=== PATIENT | male | born 1935 | race Caucasian/White ===

== ENCOUNTER 2017-01-31 16:12 | Inpatient (IN) | payer OTHER, MEDICARE ==
[~2017-01-31] VITALS: Ht 177.8 cm; Wt 79.1 kg
[2017-01-31] MEDS ORDERED: BENA5TAB PO (16:52)
[2017-01-31] MEDS ORDERED: ALLO100T PO (16:52)
[2017-01-31] MEDS ORDERED: LOSA25TA PO (16:52)
--- NOTE | 2017-01-31 17:12 | PD ---
HPI Chief Complaint: Hip Injury Time Seen by Provider: 16:24 Travel History International Travel<30 days: No Contact w/Intl Traveler<30days: No Traveled to known affect area: No History of Present Illness HPI 81-year-old male that presents to the ED via ambulance for evaluation of left hip injury. Per patient he was sitting at work trying to get a paper when he lost his balance and landed on his left hip. He denies any other injury. No abdominal or back pain. No neck pain. No head injury or loss of consciousness. Per patient the pain is severe and he cannot move his leg because of the pain. He was not able to get up himself. Upper injuries to the leg. No urinary or bowel movement issues. No fevers chills or sweats. Allergies to penicillin. Per patient the pain is severe 8 out of 10 and gets worse with movement. He was given 8 of morphine by ambulance. He has no other medical issues other than hypertension. No prior injuries or surgeries to the left hip. He denies any numbness, tingling, weakness. Takes no blood thinners. Per patient he last ate at 12:00. He has no orthopedic surgeon that he knows of. [facility] Past Medical History Hypertension: Yes Social History Alcohol Use: No Tobacco Use: No Substance Use: No Allergies-Medications (Allergen,Severity, Reaction): Coded Allergies: Penicillins (Verified Allergy, Unknown, 01/31/17) Reported Meds & Prescriptions Reported Meds & Active Scripts Active Reported Losartan (Losartan Potassium) 25 Mg Tab Unknown Dose PO DAILY Allopurinol 100 Mg Tab Unknown Dose PO DAILY Benazepril (Benazepril HCl) 5 Mg Tab Unknown Dose PO BID Review of Systems Except as stated in HPI: all other systems reviewed are Neg Physical Exam Narrative GENERAL: SKIN: Warm and dry. HEAD: Atraumatic. Normocephalic. EYES: Pupils equal and round. No scleral icterus. No injection or drainage. ENT: No nasal bleeding or discharge. Mucous membranes pink and moist. Tongue is midline. No uvula deviation. NECK: Trachea midline. No JVD. CARDIOVASCULAR: Regular rate and rhythm. No murmurs, S3, S4. RESPIRATORY: No accessory muscle use. Clear to auscultation. Breath sounds equal bilaterally. GASTROINTESTINAL: Abdomen soft, non-tender, nondistended. Hepatic and splenic margins not palpable. MUSCULOSKELETAL: Extremities without clubbing, cyanosis, or edema. No obvious deformities. Full range of motion of all extremities with exception of the left hip for which she has severe pain even with touch as well as with flexion and extension. No obvious shortening of the leg noted. 2+ pulses bilaterally. No cervical, thoracic, lumbar spine tenderness to palpation. No right hip pain. Full range of motion at right lower extremity with no pain. NEUROLOGICAL: Awake and alert. No obvious cranial nerve deficits. Motor grossly within normal limits. Five out of 5 muscle strength in the arms and legs. Normal speech. PSYCHIATRIC: Appropriate mood and affect; insight and judgment normal. Data Data Orders Orders Hip, Uni(Ap&Lat) W Ap Pelvis (01/31/17 16:22) Ice/Cold Pack (01/31/17 16:22) Chest, Single Ap (01/31/17 16:22) Electrocardiogram (01/31/17 16:22) Complete Blood Count With Diff (01/31/17 16:22) Basic Metabolic Panel (Bmp) (01/31/17 16:22) Prothrombin Time / Inr (Pt) (01/31/17 16:22) Act Partial Throm Time (Ptt) (01/31/17 16:22) Urinalysis - C+S If Indicated (01/31/17 16:22) Magnesium (Mg) (01/31/17 16:22) Iv Access Insert/Monitor (01/31/17 16:22) Ecg Monitoring (01/31/17 16:22) Oximetry (01/31/17 16:22) Femur (Ap & Lat/2vws) (01/31/17 ) Sodium Chlor 0.9% 1000 Ml Inj (Ns 1000 M (01/31/17 17:42) Admit To Inpatient (01/31/17 ) Vital Signs (Adult) TY.Q4H (01/31/17 18:01) Activity Bed Rest (01/31/17 18:01) Sodium Chlor 0.45% 1000 Ml Inj (1/2 Ns 1 (01/31/17 18:01) Inpatient Certification (01/31/17 ) Admit Order (Ed Use Only) (01/31/17 18:07) Consult Orthopedic (01/31/17 ) Labs Laboratory Tests Test 01/31/17 16:25 01/31/17 18:00 White Blood Count 8.0 TH/MM3 Red Blood Count 3.71 MIL/MM3 Hemoglobin 12.6 GM/DL Hematocrit 37.1 % Mean Corpuscular Volume 100.0 FL Mean Corpuscular Hemoglobin 33.9 PG Mean Corpuscular Hemoglobin Concent 33.9 % Red Cell Distribution Width 14.7 % Platelet Count 179 TH/MM3 Mean Platelet Volume 6.7 FL Neutrophils (%) (Auto) 71.3 % Lymphocytes (%) (Auto) 20.1 % Monocytes (%) (Auto) 6.4 % Eosinophils (%) (Auto) 1.4 % Basophils (%) (Auto) 0.8 % Neutrophils # (Auto) 5.7 TH/MM3 Lymphocytes # (Auto) 1.6 TH/MM3 Monocytes # (Auto) 0.5 TH/MM3 Eosinophils # (Auto) 0.1 TH/MM3 Basophils # (Auto) 0.1 TH/MM3 CBC Comment DIFF FINAL Differential Comment Prothrombin Time 10.8 SEC Prothromb Time International Ratio 1.0 RATIO Activated Partial Thromboplast Time 22.5 SEC Blood Urea Nitrogen 71 MG/DL Creatinine 3.76 MG/DL Random Glucose 114 MG/DL Calcium Level 8.8 MG/DL Magnesium Level 2.5 MG/DL Sodium Level 140 MEQ/L Potassium Level 4.0 MEQ/L Chloride Level 110 MEQ/L Carbon Dioxide Level 20.7 MEQ/L Anion Gap 9 MEQ/L Estimat Glomerular Filtration Rate 15 ML/MIN Urine Color LIGHT-YELLOW Urine Turbidity CLEAR Urine pH 6.5 Urine Specific [place] 1.009 Urine Protein 100 mg/dL Urine Glucose (UA) NEG mg/dL Urine Ketones NEG mg/dL Urine Occult Blood SMALL Urine Nitrite NEG Urine Bilirubin NEG Urine Urobilinogen LESS THAN 2.0 MG/DL Urine Leukocyte Esterase NEG Urine RBC 3 /hpf Urine Squamous Epithelial Cells <1 /hpf Urine Bacteria RARE /hpf Microscopic Urinalysis Comment CULT NOT INDICATED MDM Medical Decision Making Medical Screen Exam Complete: Yes Emergency Medical Condition: Yes Medical Record Reviewed: Yes Interpretation(s) CBC & BMP Diagram 01/31/17 16:25 Calcium Level 8.8, Magnesium Level 2.5 Last Impressions Hip and Pelvis X-Ray 01/31/17 0222 Signed Impressions: Service Date/Time: January 16:50 - CONCLUSION: Acute left proximal femur fracture involving the intertrochanteric region with prominent medial angulation of the distal fragment. Anthony R Larry, MD Chest X-Ray 01/31/17 1622 Signed Impressions: Service Date/Time: January 16:53 - CONCLUSION: 1. Chronic appearing interstitial changes. No acute abnormality. Oscar Mccoy MD Femur X-Ray 01/31/17 0000 Signed Impressions: Service Date/Time: January 16:50 - CONCLUSION: Angulated intertrochanteric fracture of the left femur. Anthony Larry MD Differential Diagnosis Fracture versus sprain versus strain versus fall Narrative Course 80-year-old male that presents to the ED for evaluation of fall. Patient was properly examined and was found to have signs and symptoms concerning for fracture of the hip. X-rays were ordered. Labs were ordered. Labs and imaging showed fracture of the left hip as well as what appears to be acute on chronic kidney injury. Patient was told results and agrees with plan. Call was placed to Dr. Askew who agrees to admission to medicine with surgery tomorrow by possibly Dr. Vaca. Nothing by mouth after midnight. Case was discussed with Dr. Paredes who agrees to admission. Diagnosis Primary Impression: Intertrochanteric fracture of left hip Qualified Codes: S72.142A - Displaced intertrochanteric fracture of left femur , initial encounter for closed fracture Additional Impression: Acute kidney injury Admitting Information Admitting Physician Requests: Admit Dalton Bueno Jan 31, 2017 17:12
[2017-01-31 17:18] LABS: APTT (PATIENT) 22.5 SEC (24.3-30.1); PROTHROMBIN TIME - PATIENT 10.8 SEC (9.8-11.6)
[2017-01-31 17:19] LABS: AUTOMATED NEUTROPHIL # 5.7 TH/MM3 (1.8-7.7); BASOPHIL # 0.1 TH/MM3 (0-0.2); BASOPHIL % 0.8 % (0.0-2.0); EOSINOPHIL # 0.1 TH/MM3 (0-0.4); EOSINOPHIL % 1.4 % (0.0-4.0); HEMATOCRIT 37.1 % (39.0-51.0); HEMO FLAGS DIFF FINAL; LYMPH % 20.1 % (9.0-44.0); LYMPHOCYTE # 1.6 TH/MM3 (1.0-4.8); MEAN CORPUSCULAR HEMOGLOBIN 33.9 PG (27.0-34.0); MEAN CORPUSCULAR HGB CONC 33.9 % (32.0-36.0); MONO % 6.4 % (0.0-8.0); NEUT % 71.3 % (16.0-70.0); PLATELET COUNT 179 TH/MM3 (150-450); RED BLOOD COUNT 3.71 MIL/MM3 (4.50-5.90); RED CELL DISTRIBUTION WIDTH 14.7 % (11.6-17.2)
--- NOTE | 2017-01-31 17:23 | RADRPT ---
EXAM DATE/TIME: 01/31/2017 16:53 [facility] COMPARISON: HIP LEFT (AP&LAT 2/3VWS) W AP PELVIS, January 31, 2017, 16:50. INDICATIONS : Chest pain after fall. MEDICAL HISTORY : Hypertension. SURGICAL HISTORY : None. ENCOUNTER: Initial ACUITY: 1 day PAIN SCORE: 0/10 LOCATION: Bilateral chest FINDINGS: The heart is mildly enlarged. There diffuse chronic interstitial changes. No focal or segmental pneum onia seen. No suspicious masses identified. The visualized bony structures are grossly intact. CONCLUSION: 1. Chronic appearing interstitial changes. No acute abnormality. Oscar Mccoy MD on January 31, 2017 at 17:20 Board Certified Radiologist. This report was verified electronically.
--- NOTE | 2017-01-31 17:24 | RADRPT ---
EXAM DATE/TIME: 01/31/2017 16:50 [facility] COMPARISON: No previous studies available for comparison. INDICATIONS : Left hip pain after fall. MEDICAL HISTORY : Gout. SURGICAL HISTORY : None. ENCOUNTER: Initial ACUITY: 1 day PAIN SCORE: 10/10 LOCATION: Left hip. FINDINGS: 4 views left hip and pelvis. Intertrochanteric fracture of the proximal left femur 90 medial angulat ion of the distal fragment. Hip joint alignment within normal limits. Small osteophytes of the left h ip. Subchondral cyst of the superior acetabulum measures 1.6 cm. CONCLUSION: Acute left proximal femur fracture involving the intertrochanteric region with prominent medial angul ation of the distal fragment. Anthony Larry MD on January 31, 2017 at 17:21 Board Certified Radiologist. This report was verified electronically.
--- NOTE | 2017-01-31 17:25 | RADRPT ---
EXAM DATE/TIME: 01/31/2017 16:50 [facility] COMPARISON: No previous studies available for comparison. INDICATIONS : Left femur pain after fall. MEDICAL HISTORY : Gout. SURGICAL HISTORY : None. ENCOUNTER: Initial ACUITY: 1 day PAIN SCORE: 10/10 LOCATION: Left proximal femur. FINDINGS: 4 views left femur. Intertrochanteric fracture of the proximal left femur. Prominent medial angulatio n distal fragment. Chondrocalcinosis of the lateral meniscus. CONCLUSION: Angulated intertrochanteric fracture of the left femur. Anthony Larry MD on January 31, 2017 at 17:23 Board Certified Radiologist. This report was verified electronically.
[2017-01-31 17:27] LABS: BICARBONATE 20.7 MEQ/L (21.0-32.0); MAGNESIUM 2.5 MG/DL (1.5-2.5)
[2017-01-31] MEDS ORDERED: SODIUM CHLOR 0.9% 1000 ML INJ 1,000 ML IV SCH (17:42)
[2017-01-31] MEDS ORDERED: SODIUM CHLOR 0.45% 1000 ML INJ 1,000 ML IV SCH (18:01)
[2017-01-31 18:31] LABS: BACTERIA, URINE RARE /hpf; BLOOD, URINE SMALL (NEG); COMMENT (UR) CULT NOT INDICATED; CULTURE IF INDICATED CULT NOT INDICATED; GLUCOSE,URINE NEG (NEG); KETONE, URINE NEG (NEG); NITRITE,URINE NEG (NEG); PH, URINE 6.5 (5.0-8.5); SQUAMOUS EPITHELIAL CELL URINE <1 /hpf (0-5); URINE COLOR LIGHT-YELLOW (YELLW/STRAW)
[2017-01-31] MEDS ORDERED: MORPHINE SULFATE 4 MG/ML INJ IV PUSH PRN (19:00)
--- NOTE | 2017-01-31 19:05 | HHI.HP ---
[facility] No Primary Care Physician Admission Diagnosis acute left intratrochanteric fracture, acute kidney injury Diagnoses: Chief Complaint: fall Travel History International Travel<30 Days: No Contact w/Intl Traveler <30 Da: No Traveled to Known Affected Are: No History of Present Illness 81-year-old white male being admitted for left intertrochanteric hip fracture. Patient was in his usual state of health until this morning at work when he was trying to reach for object on the floor from a sitting position when his wheeled chair gave away and he fell subsequently on his left side experiencing instantaneous pain. He denies having any lightheadedness chest pain or shortness of breath preceding during or after the incident. At that point he called 911 and came to the emergency room. Says he has a travel cota, takes blood pressure medications as well as medication for gout. Review of Systems Except as stated in HPI: all other systems reviewed are Neg Past Family Social History Past Medical History Chronic kidney disease, hypertension, Gout Past Surgical History None Allergies: Coded Allergies: Penicillins (Verified Allergy, Unknown, 01/31/17) Family History None Social History Lives with his , denies cigarette use, denies really illicit drug use, denies alcohol Physical Exam Physical Exam VS: No vital signs have been charted at this time GENERAL: No acute distress SKIN: Warm and dry. EYES: Pupils equal and round. No scleral icterus. No injection or drainage. ENT: No nasal bleeding or discharge. Mucous membranes pink and moist. CARDIOVASCULAR: Regular rate and rhythm. no murmurs RESPIRATORY: No accessory muscle use. Clear to auscultation. Breath sounds equal bilaterally. GASTROINTESTINAL: Abdomen soft, non-tender, nondistended. MUSCULOSKELETAL: Extremities without clubbing, cyanosis, or edema. Left leg slightly laterally rotated, patient not willing to move it due to intense pain, no significant edema noted over left thigh or lower leg, intact ankle dorsiflexion and plantar flexion. Has carpal tunnel brace on right hand. NEUROLOGICAL: Awake and alert. No obvious cranial nerve deficits. No facial droop nor slurred speech noted. Intact sensation over left foot, PSYCHIATRIC: Appropriate mood and affect; insight and judgment normal. Laboratory Laboratory Tests Test 01/31/17 16:25 01/31/17 18:00 White Blood Count 8.0 Red Blood Count 3.71 Hemoglobin 12.6 Hematocrit 37.1 Mean Corpuscular Volume 100.0 Mean Corpuscular Hemoglobin 33.9 Mean Corpuscular Hemoglobin Concent 33.9 Red Cell Distribution Width 14.7 Platelet Count 179 Mean Platelet Volume 6.7 Neutrophils (%) (Auto) 71.3 Lymphocytes (%) (Auto) 20.1 Monocytes (%) (Auto) 6.4 Eosinophils (%) (Auto) 1.4 Basophils (%) (Auto) 0.8 Neutrophils # (Auto) 5.7 Lymphocytes # (Auto) 1.6 Monocytes # (Auto) 0.5 Eosinophils # (Auto) 0.1 Basophils # (Auto) 0.1 CBC Comment DIFF FINAL Differential Comment Prothrombin Time 10.8 Prothromb Time International Ratio 1.0 Activated Partial Thromboplast Time 22.5 Blood Urea Nitrogen 71 Creatinine 3.76 Random Glucose 114 Calcium Level 8.8 Magnesium Level 2.5 Sodium Level 140 Potassium Level 4.0 Chloride Level 110 Carbon Dioxide Level 20.7 Anion Gap 9 Estimat Glomerular Filtration Rate 15 Urine Color LIGHT-YELLOW Urine Turbidity CLEAR Urine pH 6.5 Urine Specific [place] 1.009 Urine Protein 100 Urine Glucose (UA) NEG Urine Ketones NEG Urine Occult Blood SMALL Urine Nitrite NEG Urine Bilirubin NEG Urine Urobilinogen LESS THAN 2.0 Urine Leukocyte Esterase NEG Urine RBC 3 Urine Squamous Epithelial Cells <1 Urine Bacteria RARE Microscopic Urinalysis Comment CULT NOT INDICATED Result Diagram: 01/31/17 1625 01/31/17 1625 Imaging Last Impressions Hip and Pelvis X-Ray 01/31/171621 Signed Impressions: Service Date/Time: January 16:50 - CONCLUSION: Acute left proximal femur fracture involving the intertrochanteric region with prominent medial angulation of the distal fragment. Anthony Larry MD Chest X-Ray 01/31/171621 Signed Impressions: Service Date/Time: January 16:53 - CONCLUSION: 1. Chronic appearing interstitial changes. No acute abnormality. Oscar Mccoy MD Femur X-Ray 01/31/17 0000 Signed Impressions: Service Date/Time: January 16:50 - CONCLUSION: Angulated intertrochanteric fracture of the left femur. Anthony Larry MD Caprini VTE Risk Assessment Caprini VTE Risk Assessment: Mod/High Risk (score >= 2) Caprini Risk Assessment Model Point Value = 1 Point Value = 2 Point Value = 3 Point Value = 5 Age 41-60 Minor surgery BMI > 25 kg/m2 Swollen legs Varicose veins or History of unexplained or recurrent spontaneous Oral contraceptives or hormone replacement Sepsis (< 1 month) Serious lung disease, including pneumonia (< 1 month) Abnormal pulmonary function Acute myocardial infarction Congestive heart failure (< 1 month) History of inflammatory bowel disease Medical patient at bed rest Age 61-74 Arthroscopic surgery Major open surgery (> 45 min) Laparoscopic surgery (> 45 min) Malignancy Confined to bed (> 72 hours) Immobilizing plaster cast Central venous access Age >= 75 History of VTE Family history of VTE Factor V Leiden Prothrombin [id number] Lupus anticoagulant Anticardiolipin antibodies Elevated serum homocysteine Heparin-induced thrombocytopenia Other congenital or acquired thrombophilia Stroke (< 1 month) Elective arthroplasty Hip, pelvis, or leg fracture Acute spinal cord injury (< 1 month) Prophylaxis Regimen Total Risk Factor Score Risk Level Prophylaxis Regimen 0-1 Low Early ambulation 2 Moderate Order ONE of the following: *Sequential Compression Device (SCD) *Heparin 5000 units SQ BID 3-4 Higher Order ONE of the following medications: *Heparin 5000 units SQ TID *Enoxaparin/Lovenox 40 mg SQ daily (WT < 150 kg, CrCl > 30 mL/min) *Enoxaparin/Lovenox 30 mg SQ daily (WT < 150 kg, CrCl > 10-29 mL/min) *Enoxaparin/Lovenox 30 mg SQ BID (WT < 150 kg, CrCl > 30 mL/min) AND/OR *Sequential Compression Device (SCD) 5 or more Highest Order ONE of the following medications: *Heparin 5000 units SQ TID (Preferred with Epidurals) *Enoxaparin/Lovenox 40 mg SQ daily (WT < 150 kg, CrCl > 30 mL/min) *Enoxaparin/Lovenox 30 mg SQ daily (WT < 150 kg, CrCl > 10-29 mL/min) *Enoxaparin/Lovenox 30 mg SQ BID (WT < 150 kg, CrCl > 30 mL/min) AND *Sequential Compression Device (SCD) Assessment and Plan Assessment and Plan 81-year-old white male being admitted for a left intertrochanteric fracture secondary to mechanical fall, hemodynamically stable upon admission. - Left intertrochanteric fracture secondary to mechanical fall Surgery scheduled for tomorrow, ortho consulted. Pain medication as needed. Nothing by mouth except medications after midnight Hypertension - We'll resume home losartan and benazepril tomorrow in a.m. after renal function is reassessed Acute on CKD - Repeat BMP in a.m. after IV hydration tonight gout - await RF reassessment in am before restarting allopurinol right hand carpal tunnel - may continue splint Lovenox to be started postop. Physician Certification 2 Midnight Certification Type: Admission for Inpatient Services Order for Inpatient Services The services are ordered in accordance with Medicare regulations or non- Medicare payer requirements, as applicable. In the case of services not specified as inpatient-only, they are appropriately provided as inpatient services in accordance with the 2-midnight benchmark. Estimated LOS (days): 2 2 days is the estimated time the patient will need to remain in the hospital, assuming treatment plan goals are met and no additional complications. Post-Hospital Plan: Home Paras Corral MD Jan 31, 2017 19:05
[2017-01-31 20:25] VITALS: BP 158/87; PULSE 83; RESP 18; TEMP 96.2; O2SAT 97
[2017-01-31] MEDS: SODIUM CHLOR 0.9% 1000 ML INJ 1,000 ML IV SCH (20:26)
[2017-01-31] MEDS: ACETAMINOPHEN/HYDROcodone 325 MG/5 MG TAB PO PRN (20:46)
[2017-02-01] VITALS (7 sets, daily range): BP systolic 135–164; BP diastolic 72–77; PULSE 86–94; RESP 17–18; TEMP 95.5–97.2; O2SAT 93–97
[2017-02-01] MEDS ORDERED: CHLORHEXIDINE GLUCONATE 2 % 1 PACK (2 CLOTHS) TOPICAL PRN (00:30)
[2017-02-01] MEDS ORDERED: LACTATED RINGER'S 1000 ML IV PRN (00:30)
[2017-02-01] MEDS ORDERED: POVIDONE IODINE 5% (ANTISEPSIS KIT) 4 APPLICATIONS EACH NARE PRN (00:30)
[2017-02-01] MEDS ORDERED: INSULIN HUMAN REGULAR 1,000 UNITS/10 ML VIAL SQ PRN (00:30)
[2017-02-01] MEDS: ACETAMINOPHEN/HYDROcodone 325 MG/5 MG TAB PO PRN (04:08)
[2017-02-01] MEDS ORDERED: XARE10TA PO ×2 (06:23→13:47)
[2017-02-01] MEDS ORDERED: HYDR-3580 PO (06:23)
[2017-02-01] MEDS ORDERED: WALKER/ADULT/FO1 MIS (06:23)
[2017-02-01] MEDS ORDERED: ACETAMINOPHEN 1000 MG/100 ML 100 ML IV ONE (06:39)
--- NOTE | 2017-02-01 06:55 | PD.ORT.PN ---
Subjective Subjective Remarks s/p fall at work left hip pain. no other complaints Objective Vitals Vital Signs Date Time Temp Pulse Resp B/P (MAP) Pulse Ox O2 Delivery O2 Flow Rate FiO2 02/01/17 04:38 96.5 90 18 135/72 (93) 96 02/01/17 00:55 97.2 94 18 147/74 (98) 97 01/31/17 20:25 96.2 83 18 158/87 (110) 97 I/O 01/31/17 01/31/17 01/31/17 02/01/17 02/01/17 02/01/17 07:00 15:00 23:00 07:00 15:00 23:00 Intake Total 240 ml Output Total 800 ml Balance -560 ml Intake Oral 240 ml Output Urine Total 800 ml # Voids 2 # Bowel Movements 0 Result Diagram: 01/31/17 1625 01/31/171624 Other Results Laboratory Tests Test 01/31/17 16:25 Prothromb Time International Ratio 1.0 RATIO Prothrombin Time 10.8 SEC (9.8-11.6) Imaging Last 24 hours Impressions Hip and Pelvis X-Ray 01/31/171621 Signed Impressions: Service Date/Time: January 16:50 - CONCLUSION: Acute left proximal femur fracture involving the intertrochanteric region with prominent medial angulation of the distal fragment. Anthony Larry MD Chest X-Ray 01/31/171621 Signed Impressions: Service Date/Time: January 16:53 - CONCLUSION: 1. Chronic appearing interstitial changes. No acute abnormality. Oscar Mccoy MD Objective Remarks LLE: pain with motion. no pain in knee or ankle. nvi Assessment & Plan Assessment and Plan 1) Left Intertroch hip fx -npo -consents -surg this AM Thiago Platt Feb 01, 2017 06:55
[2017-02-01] MEDS ORDERED: BUPIVACAINE/EPINEPHRINE 0.25% 50 ML VIAL ONE (07:43)
[2017-02-01] MEDS ORDERED: VANCOMYCIN HCL 1000 MG VIAL ONE (07:43)
[2017-02-01] MEDS ORDERED: SODIUM CHLOR 0.9% 250 ML INJ 250 ML ONE (07:43)
[2017-02-01] MEDS ORDERED: GENTAMICIN SULFATE 80 MG/2 ML VIAL ONE (07:43)
--- NOTE | 2017-02-01 10:11 | PD.OP ---
cc: Zackery Vaca MD Operative Report Date of Surgery: Feb 01, 2017 Preoperative Diagnosis: Displaced left proximal femur fracture Postoperative Diagnosis: Procedure: Left hip fracture reduction and intramedullary nail fixation Anesthesia: Gen. Surgeon: Zackery Vaca Drawbench Operator(s): FRANKLYN Morrison PA-C The surgical procedure was assisted by my physician specimen preparation assistant. My P.A. presence was necessary throughout this case for the manipulation and positioning of the surgical extremity. My P.A. was assisting me throughout the duration of this procedure. The skill set of a physician specimen preparation assistant was medically necessary to complete this procedure. During the surgical case the asbestos abatement technician was working at the back table and the physician specimen preparation assistant was directly assisting me. Operation and Findings: Implants used: [12]mm x [400]mm Synthes TFNA troch nail Plan of activity: Weight-bear as tolerated Patient was seen and evaluated preoperatively. The patient has significant hip pain from proximal femur fracture. The risk and benefits of surgery were discussed in depth with the patient to include bleeding, infection, nonunion, malunion, need for hip replacement, painful hardware, as well as medical competitions including blood clots, stroke, heart attack, and . Informed consent was obtained. Operative site was marked. Patient was brought to the operating room and placed on fracture table. IV sedation was administered by anesthesiologist. Timeout procedure was performed. Hip and leg were prepped with alcohol followed by DuraPrep and draped in the usual sterile fashion. IV antibiotics were given prior to incision. Procedure began with reduction of fracture. Traction was applied. The leg was manipulated to achieve reduction. Excellent reduction was achieved. Fluoroscopy was used to confirm reduction. A three inch incision was made proximal to the trochanter. Subcutaneous tissue was dissected bluntly. Guidepin was placed at the tip of the trochanter and advanced into the femoral canal. Fluoroscopy confirmed appropriate guidepin placement. A opening reamer was placed over the guidepin. A long ball tipped guide pin was now placed down the femoral canal into the center of the distal femur. The nail length was now measured. Fluoroscopy confirmed appropriate guidepin placement. Flexible reamers were now passed over the guidepin to ream the intramedullary canal. The Synthes TFNA nail was attached to the insertion handle. Nail was now placed over the guidepin into the femoral canal. Fluoroscopy confirmed appropriate nail placement. A second incision was made over the lateral thigh. Cannulas were placed through the insertion handle down to the femur. Guidepin was now placed through the femoral nail into the center of the femoral head. Fluoroscopy confirmed appropriate guidepin placement. Screw length was measured. Cannulated drill was placed over the guidepin. Appropriate length lag screw was now placed. Traction was released and compression was applied. The set screw was now tightened in dynamic mode. Next, using perfect [place] technique two distal interlocking screws were placed. Screw holes were predrilled and screw lengths were measured. Final fluoroscopy revealed well aligned fracture with well-placed hardware. Incision was closed with 3-0 Vicryl and mary. Sterile dressings were applied. Patient was awakened and transferred to recovery room. Zackery Vaca MD Feb 01, 2017 10:11
[2017-02-01] MEDS ORDERED: MORPHINE SULFATE 4 MG/ML INJ IV PUSH PRN (10:15)
[2017-02-01] MEDS ORDERED: diphenhydrAMINE HCL 25 MG CAP PO PRN (10:15)
[2017-02-01] MEDS ORDERED: ONDANSETRON HCL 4 MG/2 ML VIAL IVP PRN (10:15)
[2017-02-01] MEDS ORDERED: SODIUM CHLORIDE 0.9% FLUSH 5 ML FLUSH IVF PRN (10:15)
[2017-02-01] MEDS ORDERED: DO NOT ADM ANY ANTICOAGULANT DRUGS PRN (10:26)
--- NOTE | 2017-02-01 10:26 | EKG ---
Date Performed: 01/31/2017 Time Performed: 16:36:43 PTAGE: 81 years EKG: Sinus rhythm WITH FIRST DEGREE AV BLOCK ABNORMAL ECG NO PREVIOUS TRACING DOCTOR: Pranay Doty Interpretating Date/Time 02/01/2017 10:19:58
--- NOTE | 2017-02-01 10:37 | MB ---
cc: KAYLI CORRAL MD, TODD DATE OF CONSULTATION: 02/01/2017 REASON FOR CONSULTATION Left hip intertrochanteric fracture. CONSULTING PHYSICIAN Dr. Corral. HISTORY OF PRESENT ILLNESS Mr. Weinberg is an 81-year-old male who was at work. He was reaching for an object on the floor. He was in a chair that had wheels. The chair rolled off from underneath him causing him to fall. He landed on his left side. He had immediate left hip pain. He was unable to stand or ambulate. He did not have any dizziness, syncope or loss of consciousness. He presented to the emergency room where x-rays revealed a left hip intertrochanteric fracture. He is currently awake and alert on the orthopedic floor. His and daughter are at bedside. His only complaint is the left hip. Pain is worse with movement. PAST MEDICAL HISTORY ILLNESSES 1. Chronic renal failure. 2. Hypertension. 3. Gout. SURGERIES None. ALLERGIES PENICILLIN. FAMILY HISTORY Noncontributory. SOCIAL HISTORY The patient lives with his . He denies alcohol, tobacco or drug use. REVIEW OF SYSTEMS The patient denies headache, visual changes, neck pain, chest pain, shortness of breath, abdominal pain, nausea, vomiting, recent weight loss, or numbness or tingling of extremities. He complains of left hip pain. PHYSICAL EXAMINATION GENERAL: The patient is a well-developed, well-nourished 81-year-old male who is awake and alert. He is alert and oriented x3. He appears well-developed, well-nourished. VITAL SIGNS: Temperature 96.5, pulse 90, respirations 18, blood pressure 135/72. O2 sat 96% on room air. HEAD: The patient is normocephalic. Pupils are equal. NECK: Soft, nontender. Trachea is midline. ABDOMEN: Soft, nontender, nondistended. EXTREMITIES: Examination of bilateral upper extremities reveals no pain with shoulder, elbow or wrist motion. There is intact sensation in all fingers. There is good capillary refill in all fingers. Skin is intact to both hands. Examination of right leg reveals no pain with hip, knee or ankle motion. Skin is intact. Dorsalis pedis pulse is palpable. Examination of left leg reveals pain with any hip motion. He is diffusely tender around the hip. He has minimal tenderness around his knee, tibia or ankle. Skin is intact. Dorsalis pedis pulse is palpable. Sensation is intact. X-RAYS X-rays of the left hip were reviewed. X-rays reveal a displaced left hip intertrochanteric fracture. IMPRESSION 1. Chronic renal failure. 2. Osteoporosis. 3. Left hip intertrochanteric fracture. PLAN The treatment options were discussed with the patient and his family. At this point I would recommend reduction and intramedullary nail fixation of left hip. The risks of surgery include bleeding, infection, injuries to arteries, nerves and blood vessels, nonunion, malunion, painful hardware, as well as medical complications including blood clot, stroke, heart attack and . All questions were answered. I will plan on surgery today. A mid-level provider in my office, nurse practitioner or PA, may see this patient on a follow-up basis and continue to implement the objective of this plan including: Starting or adjusting medications, injections of muscle, tendon, bursa or joints, cast application, orthotic or brace application, physical therapy, further radiographic studies including x-ray, MRI, CT, ultrasounds or bone scan, vascular studies, neurologic studies, or other specialist consultations, and proceeding with surgical management as appropriate. MD JEFF Conteh/DAVID /10:12 AM /10:17 AM
[2017-02-01] MEDS ORDERED: ERGOCALCIFEROL (VIT D2) 50,000 UNIT CAP PO ONE (11:00)
[2017-02-01] MEDS ORDERED: ROCURONIUM INJ 50 MG/5 ML SYRINGE IV PUSH ONE (12:00)
[2017-02-01] MEDS ORDERED: LIDOCAINE HCL 1% PF 5 ML AMPULE OTHER ONE (12:00)
[2017-02-01] MEDS ORDERED: SODIUM CHLOR 0.9% 250 ML INJ 250 ML IV ONE (12:00)
[2017-02-01] MEDS ORDERED: PHENYLEPH/NS 1000 MCG/10 ML SYR IV ONE (12:00)
[2017-02-01] MEDS ORDERED: ePHEDrine/NS 25 MG/5 ML SYR IV ONE (12:00)
[2017-02-01] MEDS ORDERED: METOPROLOL TARTRATE 5 MG/5 ML VIAL IV PUSH ONE (12:00)
[2017-02-01] MEDS ORDERED: ceFAZolin INJ 1,000 MG VIAL IV ONE (12:00)
[2017-02-01] MEDS ORDERED: DEXAMETHASONE SOD PHOS 4 MG/ML VIAL IV ONE (12:00)
[2017-02-01] MEDS ORDERED: PROPOFOL 200 MG/20 ML AMP IV ONE (12:00)
[2017-02-01] MEDS ORDERED: GLYCOPYRROLATE 1 MG/5 ML SYRINGE IV PUSH ONE (12:00)
[2017-02-01] MEDS ORDERED: NEOSTIGMINE 3 MG/3 ML SYR IV ONE (12:00)
[2017-02-01] MEDS ORDERED: MIDAZOLAM HCL 2 MG/2 ML VIAL IV ONE (12:00)
--- NOTE | 2017-02-01 12:45 | HHI.PR ---
Subjective Remarks Nursing reports no acute setbacks since last night. Pt himself says his nose feels a little stuffy w/ the NC in it. Objective Vital Signs Date Time Temp Pulse Resp B/P (MAP) Pulse Ox O2 Delivery O2 Flow Rate FiO2 02/01/17 11:15 97.9 90 12 160/78 (105) 97 Nasal Cannula 2 02/01/17 11:00 89 12 153/67 (95) 98 Nasal Cannula 2 02/01/17 10:45 92 12 163/77 (105) 98 Nasal Cannula 2 02/01/17 10:30 99 12 164/74 (104) 98 Nasal Cannula 4 02/01/17 10:26 97.5 103 12 138/65 (89) 95 Nasal Cannula 4 02/01/17 04:38 96.5 90 18 135/72 (93) 96 02/01/17 00:55 97.2 94 18 147/74 (98) 97 01/31/17 20:25 96.2 83 18 158/87 (110) 97 I/O 01/31/17 01/31/17 01/31/17 02/01/17 02/01/17 02/01/17 07:00 15:00 23:00 07:00 15:00 23:00 Intake Total 240 ml 1450 ml 600 ml Output Total 800 ml 500 ml 200 ml Balance -560 ml 950 ml 400 ml Intake Oral 240 ml 0 ml IV Total 1450 ml Other 600 ml Output Urine Total 800 ml 500 ml 125 ml Estimated Blood Loss 75 ml # Voids 2 # Bowel Movements 0 0 Result Diagram: 01/31/17 1625 01/31/17 1625 Objective Remarks Left thigh grossly intact, incisions covered with dressing, grossly intact ankle range of motion bilaterally No acute distress otherwise, unlabored breathing, clear breath sounds bilaterally A/P Assessment and Plan 81-year-old white male being admitted for a left intertrochanteric fracture secondary to mechanical fall, hemodynamically stable upon admission. - Left intertrochanteric fracture secondary to mechanical fall POD # 0 Pain medication as needed. Will start on low dose lovenox given CKD, may be a candidate for NOAC. Hypertension - BMP not drawn yet for this AM, lab contacted, We'll resume home losartan and benazepril tomorrow in a.m. after renal function is reassessed today Acute on CKD - BMP pending for today gout - await RF reassessment in am before restarting allopurinol right hand carpal tunnel - may continue splint prn anticipate SNF vs HH Paras Corral MD Feb 01, 2017 12:45
--- NOTE | 2017-02-01 13:47 | PD.ORT.PN ---
Subjective Subjective Remarks POD 0 s/p IMN left hip stable post op Objective Vitals Vital Signs Date Time Temp Pulse Resp B/P (MAP) Pulse Ox O2 Delivery O2 Flow Rate FiO2 02/01/17 11:15 97.9 90 12 160/78 (105) 97 Nasal Cannula 2 02/01/17 11:00 89 12 153/67 (95) 98 Nasal Cannula 2 02/01/17 10:45 92 12 163/77 (105) 98 Nasal Cannula 2 02/01/17 10:30 99 12 164/74 (104) 98 Nasal Cannula 4 02/01/17 10:26 97.5 103 12 138/65 (89) 95 Nasal Cannula 4 02/01/17 04:38 96.5 90 18 135/72 (93) 96 02/01/17 00:55 97.2 94 18 147/74 (98) 97 01/31/17 20:25 96.2 83 18 158/87 (110) 97 I/O 01/31/17 01/31/17 01/31/17 02/01/17 02/01/17 02/01/17 07:00 15:00 23:00 07:00 15:00 23:00 Intake Total 240 ml 1450 ml 600 ml Output Total 800 ml 500 ml 200 ml Balance -560 ml 950 ml 400 ml Intake Oral 240 ml 0 ml IV Total 1450 ml Other 600 ml Output Urine Total 800 ml 500 ml 125 ml Estimated Blood Loss 75 ml # Voids 2 # Bowel Movements 0 0 Result Diagram: 01/31/17 1625 01/31/17 1625 Other Results Laboratory Tests Test 01/31/17 16:25 Prothromb Time International Ratio 1.0 RATIO Prothrombin Time 10.8 SEC (9.8-11.6) Imaging Last 24 hours Impressions Hip and Pelvis X-Ray 01/31/171621 Signed Impressions: Service Date/Time: January 16:50 - CONCLUSION: Acute left proximal femur fracture involving the intertrochanteric region with prominent medial angulation of the distal fragment. Anthony Larry MD Chest X-Ray 01/31/171621 Signed Impressions: Service Date/Time: January 16:53 - CONCLUSION: 1. Chronic appearing interstitial changes. No acute abnormality. Oscar Mccoy MD Objective Remarks LLE: dressings clean and dry. intact. NVI Assessment & Plan Assessment and Plan 1) Left Intertroch hip fx s/p IMN - POD 0 -WBAT -daily dressing changes POD 2 -CM for DC planning. Home with HH vs SNF. will likely need SNF but depends how does with therapy -Rx on chart -f/u with [facility] or [facility] in 2 weeks Thiago Platt Feb 01, 2017 13:47
[2017-02-01] MEDS: CALCIUM/VITAMIN D 250 MG/125 U TAB PO SCH ×2 (15:01→18:37)
[2017-02-01 15:02] LABS: BICARBONATE 22.1 MEQ/L (21.0-32.0)
[2017-02-01] MEDS: ACETAMINOPHEN/HYDROcodone 325 MG/7.5 MG TAB PO PRN ×3 (15:02→23:51)
--- NOTE | 2017-02-01 15:33 | RADRPT ---
EXAM DATE/TIME: 02/01/2017 10:02 [facility] COMPARISON: No previous studies available for comparison. INDICATIONS : ORIF left hip, troch nail. MEDICAL HISTORY : None. SURGICAL HISTORY : None. ENCOUNTER: Initial ACUITY: 1 day PAIN SCORE: Non-responsive. LOCATION: Left hip FINDINGS: Multiple intraprocedural fluoroscopic hold images demonstrate interval intertrochanteric nail and int ramedullary eder fixation of intertrochanteric femoral fracture. Hardware appears well positioned and is intact. There is near-anatomic alignment. No additional acute fractures are identified. CONCLUSION: 1. Status post left hip ORIF, as above. Logan Montilla MD on February 01, 2017 at 15:30 Board Certified Radiologist. This report was verified electronically.
[2017-02-01] MEDS: SODIUM CHLORIDE 0.9% FLUSH 5 ML FLUSH IVF SCH (20:49)
[2017-02-01] MEDS ORDERED: ENOXAPARIN SODIUM 30 MG/0.3 ML SYRINGE SQ SCH (22:00)
[2017-02-01] MEDS: SODIUM CHLOR 0.9% 1000 ML INJ 1,000 ML IV SCH ×2 (23:10)
[2017-02-02] VITALS (7 sets, daily range): BP systolic 127–161; BP diastolic 69–85; PULSE 81–97; RESP 16–18; TEMP 96.7–98.6; O2SAT 92–96
[2017-02-02] MEDS: ACETAMINOPHEN/HYDROcodone 325 MG/7.5 MG TAB PO PRN ×6 (03:00→21:36)
--- NOTE | 2017-02-02 06:02 | PD.ORT.PN ---
Subjective Subjective Remarks patient improving, will be being discharged to rehab tomorrow Objective Vitals Vital Signs Date Time Temp Pulse Resp B/P (MAP) Pulse Ox O2 Delivery O2 Flow Rate FiO2 02/02/17 04:00 96.9 89 18 161/75 (103) 95 02/02/17 00:19 96.9 88 18 153/85 (107) 96 02/01/17 21:56 93 21 02/01/17 19:59 96.9 89 18 146/76 (99) 93 02/01/17 19:15 Room Air 02/01/17 17:03 97 Nasal Cannula 2.00 02/01/17 16:00 96.7 86 17 160/77 (104) 94 02/01/17 12:00 95.5 90 17 164/75 (104) 93 02/01/17 11:15 97.9 90 12 160/78 (105) 97 Nasal Cannula 2 02/01/17 11:00 89 12 153/67 (95) 98 Nasal Cannula 2 02/01/17 10:45 92 12 163/77 (105) 98 Nasal Cannula 2 02/01/17 10:30 99 12 164/74 (104) 98 Nasal Cannula 4 02/01/17 10:26 97.5 103 12 138/65 (89) 95 Nasal Cannula 4 I/O 02/01/17 02/01/17 02/01/17 02/02/17 02/02/17 02/02/17 07:00 15:00 23:00 07:00 15:00 23:00 Intake Total 1450 ml 1200 ml 240 ml 100 ml Output Total 500 ml 200 ml 100 ml Balance 950 ml 1000 ml 140 ml 100 ml Intake Oral 0 ml 600 ml 240 ml IV Total 1450 ml 100 ml Other 600 ml Output Urine Total 500 ml 125 ml 100 ml Estimated Blood Loss 75 ml # Voids 1 # Bowel Movements 0 0 0 Result Diagram: 01/31/17 1625 02/01/17 1340 Imaging Last 24 hours Impressions Hip and Pelvis X-Ray 01/31/171621 Signed Impressions: Service Date/Time: January 16:50 - CONCLUSION: Acute left proximal femur fracture involving the intertrochanteric region with prominent medial angulation of the distal fragment. Anthony Larry MD Chest X-Ray 9/28/17 1622 Signed Impressions: Service Date/Time: January 16:53 - CONCLUSION: 1. Chronic appearing interstitial changes. No acute abnormality. Oscar Mccoy MD Objective Remarks seen by Dr. Amandeep STALLWORTH: dressings clean and dry. intact. NVI no calf tenderness Assessment & Plan Assessment and Plan 1) Left Intertroch hip fx s/p IMN - POD #1 -WBAT -daily dressing changes starting POD #2 -patient will be discharged to [facility] rehab tomorrow -Rx on chart -f/u with Victorino or [facility] in 2 weeks Brianda Ramos Feb 02, 2017 06:02
[2017-02-02 08:16] LABS: REVIEW FLAG FINAL
[2017-02-02] MEDS: CALCIUM/VITAMIN D 250 MG/125 U TAB PO SCH ×3 (08:51→18:16)
[2017-02-02] MEDS: CHOLECALCIFEROL (VIT D3) 5000 UNIT CAP PO SCH (08:51)
[2017-02-02] MEDS: ENOXAPARIN SODIUM 30 MG/0.3 ML SYRINGE SQ SCH (08:53)
[2017-02-02] MEDS: SODIUM CHLORIDE 0.9% FLUSH 5 ML FLUSH IVF SCH ×2 (08:53→21:00)
--- NOTE | 2017-02-02 10:21 | HHI.PR ---
Subjective Remarks F/u on left hip fx. Nursing reports no acute setbacks since last night. Pt himself denies any new complaints Objective Vital Signs Date Time Temp Pulse Resp B/P (MAP) Pulse Ox O2 Delivery O2 Flow Rate FiO2 02/02/17 07:15 16 02/02/17 07:08 98.6 92 16 157/77 (103) 96 02/02/17 04:00 96.9 89 18 161/75 (103) 95 02/02/17 00:19 96.9 88 18 153/85 (107) 96 02/01/17 21:56 93 21 02/01/17 19:59 96.9 89 18 146/76 (99) 93 02/01/17 19:15 Room Air 02/01/17 17:03 97 Nasal Cannula 2.00 02/01/17 16:00 96.7 86 17 160/77 (104) 94 02/01/17 12:00 95.5 90 17 164/75 (104) 93 02/01/17 11:15 97.9 90 12 160/78 (105) 97 Nasal Cannula 2 02/01/17 11:00 89 12 153/67 (95) 98 Nasal Cannula 2 02/01/17 10:45 92 12 163/77 (105) 98 Nasal Cannula 2 02/01/17 10:30 99 12 164/74 (104) 98 Nasal Cannula 4 02/01/17 10:26 97.5 103 12 138/65 (89) 95 Nasal Cannula 4 I/O 02/01/17 02/01/17 02/01/17 02/02/17 02/02/17 02/02/17 07:00 15:00 23:00 07:00 15:00 23:00 Intake Total 1450 ml 1200 ml 240 ml 809 ml Output Total 500 ml 200 ml 100 ml 600 ml Balance 950 ml 1000 ml 140 ml 209 ml Intake Oral 0 ml 600 ml 240 ml 240 ml IV Total 1450 ml 569 ml Other 600 ml Output Urine Total 500 ml 125 ml 100 ml 600 ml Estimated Blood Loss 75 ml # Voids 1 # Bowel Movements 0 0 0 0 Result Diagram: 02/02/17 0611 02/01/17 1340 Objective Remarks Left thigh grossly intact, incisions covered with dressing, grossly intact ankle range of motion bilaterally No acute distress otherwise, unlabored breathing, clear breath sounds bilaterally A/P Assessment and Plan 81-year-old white male being admitted for a left intertrochanteric fracture secondary to mechanical fall, hemodynamically stable upon admission. - Left intertrochanteric fracture secondary to mechanical fall POD # 1 Pain medication as needed. low dose Lovenox given CKD, transition to NOAC upon discharge. Hypertension - resuming losartan, not resuming home VASQUEZ inhibitor because that would be inappropriate double coverage with VASQUEZ inhibitor and arb ckd - BMP stable gout - restarting allopurinol right hand carpal tunnel - may continue splint prn May use home fish oils anticipate SNF discharge in AM Paras Corral MD Feb 02, 2017 10:21
[2017-02-02] MEDS: ALLOPURINOL 100 MG TAB PO SCH (11:54)
[2017-02-02] MEDS: LOSARTAN 25 MG TAB PO SCH (11:54)
[2017-02-02] MEDS: LISINOPRIL 5 MG TAB PO SCH (11:55)
[2017-02-03] VITALS: BP 120/69; PULSE 93; RESP 18; TEMP 96.3; O2SAT 96
[2017-02-03] MEDS: ACETAMINOPHEN/HYDROcodone 325 MG/7.5 MG TAB PO PRN ×3 (03:25→14:33)
[2017-02-03] MEDS ORDERED: MAGNESIUM HYDROXIDE SUSP 30 ML CUP PO SCH (06:00)
[2017-02-03] MEDS: CALCIUM/VITAMIN D 250 MG/125 U TAB PO SCH ×2 (07:46→14:34)
[2017-02-03] MEDS: LISINOPRIL 5 MG TAB PO SCH (07:46)
[2017-02-03] MEDS: CHOLECALCIFEROL (VIT D3) 5000 UNIT CAP PO SCH (07:47)
[2017-02-03] MEDS: LOSARTAN 25 MG TAB PO SCH (07:47)
[2017-02-03] MEDS: ALLOPURINOL 100 MG TAB PO SCH (07:47)
[2017-02-03] MEDS: ENOXAPARIN SODIUM 30 MG/0.3 ML SYRINGE SQ SCH (07:47)
[2017-02-03] MEDS: SODIUM CHLORIDE 0.9% FLUSH 5 ML FLUSH IVF SCH (07:57)
[2017-02-03 08:00] VITALS: BP 97/48; PULSE 108; RESP 18; TEMP 97.7; O2SAT 97
--- NOTE | 2017-02-03 08:18 | PD.ORT.PN ---
Subjective Subjective Remarks patient improving, sitting up in chair with in room having difficulty urinating in bed hill Objective Vitals Vital Signs Date Time Temp Pulse Resp B/P (MAP) Pulse Ox O2 Delivery O2 Flow Rate FiO2 02/03/17 00:00 96.3 93 18 120/69 (86) 96 02/02/17 20:55 97.0 97 17 127/80 (96) 95 02/02/17 16:00 96.8 97 16 159/77 (104) 96 02/02/17 15:57 16 02/02/17 11:38 96.7 81 16 132/69 (90) 96 02/02/17 11:16 92 21 I/O 02/02/17 02/02/17 02/02/17 02/03/17 02/03/17 02/03/17 07:00 15:00 23:00 07:00 15:00 23:00 Intake Total 809 ml 720 ml 240 ml 240 ml Output Total 600 ml 500 ml 400 ml Balance 209 ml 720 ml -260 ml -160 ml Intake Oral 240 ml 720 ml 240 ml 240 ml IV Total 569 ml Output Urine Total 600 ml 500 ml 400 ml # Voids 5 # Bowel Movements 0 0 0 0 Result Diagram: 02/02/17 0611 02/01/17 1340 Imaging Last 24 hours Impressions Hip and Pelvis X-Ray 01/31/171621 Signed Impressions: Service Date/Time: January 16:50 - CONCLUSION: Acute left proximal femur fracture involving the intertrochanteric region with prominent medial angulation of the distal fragment. Anthony Larry MD Chest X-Ray 01/31/171621 Signed Impressions: Service Date/Time: January 16:53 - CONCLUSION: 1. Chronic appearing interstitial changes. No acute abnormality. Oscar Mccoy MD Objective Remarks sitting up in chair at bedside in room seen by Dr. Amandeep Levy LLE: dressings clean and dry. intact. NVI no calf tenderness Assessment & Plan Assessment and Plan 1) Left Intertroch hip fx s/p IMN - POD #2 -WBAT -daily dressing changes starting POD #3 -with regards to difficulty urinating, advised to use toilet and stand with walker and not bedpan -discharge to [facility] rehab today, orthopedically stable -Rx on chart -f/u with David or KINA in 2 weeks Brianda Ramos Feb 03, 2017 08:18
[2017-02-03 08:53] VITALS: RESP 16
--- NOTE | 2017-02-03 09:58 | HHI.DS ---
Discharge Summary Admission Date Jan 31, 2017 at 18:09 Discharge Date: Feb 03, 2017 Admitting Diagnosis acute left intratrochanteric fracture, acute kidney injury (1) Intertrochanteric fracture of left hip ICD Code: S72.142A - Displaced intertrochanteric fracture of left femur, initial encounter for closed fracture Status: Acute Procedures Repair of left intertrochanteric hip fracture Brief History - From Admission 81-year-old white male being admitted for left intertrochanteric hip fracture. Patient was in his usual state of health until this morning at work when he was trying to reach for object on the floor from a sitting position when his wheeled chair gave away and he fell subsequently on his left side experiencing instantaneous pain. He denies having any lightheadedness chest pain or shortness of breath preceding during or after the incident. At that point he called 911 and came to the emergency room. 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 CBC/BMP: 02/02/17 0611 02/01/17 1340 Significant Findings Laboratory Tests Test 01/31/17 16:25 01/31/17 18:00 02/01/17 13:40 02/02/17 06:11 Red Blood Count 3.71 MIL/MM3 (4.50-5.90) Hemoglobin 12.6 GM/DL (13.0-17.0) 9.9 GM/DL (13.0-17.0) Hematocrit 37.1 % (39.0-51.0) 29.0 % (39.0-51.0) Mean Platelet Volume 6.7 FL (7.0-11.0) Neutrophils (%) (Auto) 71.3 % (16.0-70.0) Activated Partial Thromboplast Time 22.5 SEC (24.3-30.1) Blood Urea Nitrogen 71 MG/DL (7-18) 66 MG/DL (7-18) Creatinine 3.76 MG/DL (0.60-1.30) 3.66 MG/DL (0.60-1.30) Random Glucose 114 MG/DL (74-106) 132 MG/DL (74-106) Chloride Level 110 MEQ/L (98-107) 110 MEQ/L (98-107) Carbon Dioxide Level 20.7 MEQ/L (21.0-32.0) Estimat Glomerular Filtration Rate 15 ML/MIN (>89) 16 ML/MIN (>89) Urine Protein 100 mg/dL (NEG-TRACE) Urine Occult Blood SMALL (NEG) Urine Bacteria RARE /hpf (NONE) Calcium Level 8.4 MG/DL (8.5-10.1) 25-Hydroxy Vitamin D Total 16.6 ng/ML (30-100) PE at Discharge Left leg with incision cover and postoperative dressing No acute distress, unlabored breathing Hospital Course Patient was admitted, underwent repair of left intertrochanteric hip fracture. Did well postoperatively. Tolerated by mouth intake well and maintained good respiratory status. As explained to him that taking losartan and benazepril as home medications was generally contraindicated and that I would only continue with his losartan and for him to contact his order fulfillment specialist after discharge on an outpatient to clarify this previous regimen. The patient was informed that he would be on a blood thinner for some time to minimize risk of DVT/PE. Patient has been maximal benefit from hospitalization and is clinically stable for discharge. Pt Condition on Discharge: Stable Discharge Disposition: Discharge to SNF Discharge Time: <= 30 minutes Discharge Instructions DIET: Follow Instructions for: Renal Failure Diet Activities you can perform: Weight Bearing as Sonya Follow up Referrals: Orthopedics - 2 Weeks [facility] with Zackery Hernandez MD New Medications: Hydrocodone-Acetaminophen (Hydrocodone-Acetaminophen) 7.5-325 mg Tab 1 TAB PO Q4H PRN for PAIN, #60 TAB 0 Refills Rivaroxaban (Xarelto) 10 Mg Tab 10 MG PO DAILY for Blood Clot Prevention, #14 TAB 0 Refills Walker/Adult/Folding (Walker/Adult/Folding) 1 Mis Mis EA .ROUTE DIRECTED, #1 0 Refills Paras Corral MD Feb 03, 2017 09:58
--- NOTE | 2017-02-03 09:58 | HHI.DCPOC ---
Discharge Care Plan Diagnosis: (1) Intertrochanteric fracture of left hip Goals to Promote Your Health * To prevent worsening of your condition and complications * To maintain your health at the optimal level Directions to Meet Your Goals Take your medications as prescribed Follow your dietary instruction Follow activity as directed Keep your appointments as scheduled Take your immunizations and boosters as scheduled If your symptoms worsen call your PCP, if no PCP go to Urgent Care Center or Emergency Room Smoking is Dangerous to Your Health. Avoid second hand smoke Call the 24-hour hour crisis hotline for domestic abuse at Paras Corral MD Feb 03, 2017 09:58
[2017-02-03] MEDS ORDERED: BISACODYL 10 MG SUPP RECTAL ONE (12:15)
== END 2017-02-03 15:03 | DRG 481 ==
LOC: NEPC 16:12 → NEDA 18:09 → N06A 19:33
PROVIDERS: ADMIT Hospitalist; ATTEND Hospitalist
PROC: 0QS706Z Reposition Left Upper Femur with Intramedullary Internal Fixation Device, Open Approach (ICD-10-PCS; principal; 2017-02-01 09:04)
DX: S72.142A Displaced intertrochanteric fracture of left femur, initial encounter for closed fracture (principal); N17.9 Acute kidney failure, unspecified; M10.9 Gout, unspecified; I12.9 Hypertensive chronic kidney disease with stage 1 through stage 4 chronic kidney disease, or unspecified chronic kidney disease; N18.9 Chronic kidney disease, unspecified; G56.01 Carpal tunnel syndrome, right upper limb; M81.0 Age-related osteoporosis without current pathological fracture; W07.XXXA Fall from chair, initial encounter; Y99.0 Civilian activity done for income or pay; Z88.0 Allergy status to penicillin
CPT/HCPCS: 71010; 73502; 73552; 76000; 80048; 81001; 82306; 83735; 85014; 85018; 85025; 85049; 85610; 85730; 86850; 86900; 86901; 93005; C1713; J0131; J0690; J1100; J1580; J1650; J2250; J2270; J2370; J2710; J3010; J3370; J7030; J7050